=== PATIENT | male | born 1970 | race Caucasian/White ===

== ENCOUNTER 2019-10-15 03:34 | Emergency (ER) | payer OTHER ==
[2019-10-15 03:39] VITALS: BMI 24.3
[2019-10-15] MEDS ORDERED: SODIUM CHLORIDE 2,177 ML IV ONE (03:56)
--- NOTE | 2019-10-15 03:56 | PDOC ---
History of Present Illness - General Chief Complaint: SIRS, Suspected/Possible Stated Complaint: FEVER AND COLD SYMPTOMS History Source: Patient Exam Limitations: No Limitations - History of Present Illness Initial Comments: 10/15/19 07:49 49 yo M with no pmhx hx presents with 1 day of cough, fever, shortness of breath, and body aches. 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 He denies recent sick contacts and is currently still working at his branch. He took tylenol earlier today without relief of fever and aches. The patient denies the following: recent travels, chest pain, nausea, vomiting, headache, lightheadedness, dizziness, visual disturbance, abdominal pain, dysuria, hematuria, diarrhea, and leg pain/swelling. Allergies: NKDA Past History - Past Medical History Allergies/Adverse Reactions: Allergies Allergy/AdvReac Type Severity Reaction Status Date / Time No Known Allergies Allergy Verified 10/15/19 03:37 - Psycho Social/Smoking Cessation Hx Smoking History: Unknown if ever smoked Have you smoked in the past 12 months: No Information on smoking cessation initiated: No Hx Alcohol Use: No Drug/Substance Use Hx: No Review of Systems - Review of Systems Able to Perform ROS?: Yes Is the patient limited Bangladeshi proficient: No Constitutional: Yes: Chills, Fever, Weakness. No: Diaphoresis HEENTM: No: Eye Pain, Ear Pain, Nose Pain, Throat Pain, Mouth Pain Respiratory: Yes: Cough, Shortness of Breath. No: Hemoptysis Cardiac (ROS): No: Chest Pain, Irregular Heart Rate, Lightheadedness, Chest Tightness ABD/GI: Yes: Poor Fluid Intake. No: Constipated, Diarrhea, Nausea, Rectal Bleeding, Vomiting, Tarry Stools : No: Burning, Dysuria, Hematuria Musculoskeletal: Yes: Muscle Pain. No: Back Pain, Joint Pain, Neck Pain Integumentary: No: Rash Neurological: No: Headache Psychiatric: No: Change in Appetite Endocrine: No: Unexplained Weight Loss Hematologic/Lymphatic: No: Anemia *Physical Exam - Vital Signs Last Vital Signs Temp Pulse Resp BP Pulse Ox 101.0 F H 92 H 22 H 172/96 H 96 10/15/19 03:37 10/15/19 03:37 10/15/19 03:37 10/15/19 03:37 10/15/19 03:37 - Physical Exam General Appearance: Yes: Nourished, Appropriately Dressed. No: Apparent Distress, Intoxicated HEENT: positive: EOMI, CRISTINA, Normal Voice, Symmetrical, Pharynx Normal, Hearing Grossly Normal. negative: Pale Conjunctivae, Scleral Icterus (L), Muffled/Hoarse voice, Pharyngeal Erythema, Tonsillar Exudate, Tonsillar Er ythema, Nasal Congestion, Rhinorrhea, Sinus Tenderness, Excessive drooling Neck: positive: Trachea midline, Supple. negative: Tender, Lymphadenopathy (R), Lymphadenopathy (L), Tender lateral, Tender midline Respiratory/Chest: positive: Lungs Clear, Normal Breath Sounds. negative: Chest Tender, Respiratory Distress, Accessory Muscle Use Cardiovascular: positive: Regular Rhythm, Regular Rate, S1, S2. negative: Systolic Murmur Gastrointestinal/Abdominal: positive: Normal Bowel Sounds, Flat, Soft. negative: Tender Lymphatic: negative: Adenopathy Musculoskeletal: positive: Normal Inspection. negative: CVA Tenderness Extremity: positive: Normal Capillary Refill, Normal Inspection, Normal Range of Motion. negative: Tender Integumentary: positive: Normal Color, Dry, Warm, Other (hot to the touch) Neurologic: positive: Fully Oriented, Alert, Normal Mood/Affect ED Treatment Course - LABORATORY CBC & Chemistry Diagram: 10/15/19 04:15 10/15/19 03:57 Medical Decision Making - Medical Decision Making 49 yo M with no pmhx hx presents with 1 day of cough, fever, shortness of breath, and body aches. Per the patient, he works as a banking assistant at a local branch. Initial vitals: Initial Vital Signs Temp Pulse Resp BP Pulse Ox 101.0 F H 92 H 22 H 172/96 H 96 10/15/19 03:37 10/15/19 03:37 10/15/19 03:37 10/15/19 03:37 10/15/19 03:37 Work up: patient presents with URI like symptoms consistent with COVID. Patient to be swabbed for COVID. Will acquire labs and cultures Will provide fluids and tylenol Laboratory Tests 10/15/19 10/15/19 10/15/19 03:57 04:15 04:15 WBC 6.4 RBC 4.50 Hgb 13.0 Hct 38.9 MCV 86.4 MCH 28.8 MCHC 33.3 RDW 13.0 Plt Count 177 MPV 9.5 Absolute Neuts (auto) 4.8 Neutrophils % 76.0 Lymphocytes % 12.2 Monocytes % 9.9 Eosinophils % 1.6 Basophils % 0.3 Nucleated RBC % 0 PT with INR 12.60 INR 1.07 PTT (Actin FS) 30.0 Sodium 138 Potassium 3.6 Chloride 103 Carbon Dioxide 25 Anion Gap 10 BUN 8.0 Creatinine 1.1 Est GFR (CKD-EPI)AfAm 91.52 Est GFR (CKD-EPI)NonAf 78.96 Random Glucose 94 Lactic Acid Calcium 8.8 Total Bilirubin 0.3 AST 14 L ALT 15 Alkaline Phosphatase 57 Troponin I < 0.02 Total Protein 7.9 Albumin 4.0 Influenza A (Rapid) Influenza B (Rapid) RSV Rapid 10/15/19 10/15/19 10/15/19 04:15 05:30 05:30 WBC RBC Hgb Hct MCV MCH MCHC RDW Plt Count MPV Absolute Neuts (auto) Neutrophils % Lymphocytes % Monocytes % Eosinophils % Basophils % Nucleated RBC % PT with INR INR PTT (Actin FS) Sodium Potassium Chloride Carbon Dioxide Anion Gap BUN Creatinine Est GFR (CKD-EPI)AfAm Est GFR (CKD-EPI)NonAf Random Glucose Lactic Acid 2.0 Calcium Total Bilirubin AST ALT Alkaline Phosphatase Troponin I Total Protein Albumin Influenza A (Rapid) Negative Influenza B (Rapid) Negative RSV Rapid Negative labs within normal limits influenza and rsv negative; pending covid patient was re-assessed. symptomatically improved after tylenol and fluids. the patient was noted to have a recurrence of fever and given tylenol prior to discharge covid quarantine discharge instructions given to the patient. CXR was within normal limits. EKG: NSR without ST elevations or depressions. ventricular rate is 94 bpm, MN is 146 ms, QRS is 84 ms. Discharge - Discharge Information Problems reviewed: Yes Clinical Impression/Diagnosis: Viral syndrome, Coronavirus infection - Follow up/Referral Referrals: Dora Elias MD [Primary Care Provider] - - Patient Discharge Instructions Patient Printed Discharge Instructions: [facility]-Coronavirus Instructions Additional Instructions: You were seen in the emergency department for your symptoms including fevers, cough, and shortness of breath. Your labs are within normal limits and your xray looks within normal limits. Please follow up with your primary medical doctor 2 weeks after discharge. You must be placed quarantine. Please reference the coronavirus discharge instructions. Please return to the emergency department if you develop worsening symptoms or new concerns. You will be called when your results are in which takes up to 1 week. - Post Discharge Activity
[2019-10-15] MEDS ORDERED: ACETAMINOPHEN 1000 MG/100 ML VIAL (NON FORMULARY) IVPB ONE (03:57)
[2019-10-15] MEDS ORDERED: ACETAMINOPHEN INJECTION 100 ML IVPB ONE (04:03)
[2019-10-15] MEDS ORDERED: ONDANSETRON 4 MG/2 ML VIAL ONE ×2 (04:08→04:09)
[2019-10-15] MEDS ORDERED: ONDANSETRON 4 MG/2 ML VIAL IVPUSH ONE (04:18)
[2019-10-15 04:54] LABS: BASO % 0.3 % (0-2.0); EOS % 1.6 % (0-4.5); HEMATOCRIT 38.9 % (35.4-49); LYMPH % 12.2 % (8-40); MCH 28.8 pg (25.7-33.7); MCHC 33.3 g/dl (32.0-35.9); MEAN CELL VOLUME 86.4 fl (80-96); MEAN PLT VOLUME 9.5 fl (7.5-11.1); MONO % 9.9 % (3.8-10.2); PLATELET COUNT 177 K/MM3 (134-434); WHITE BLOOD COUNT 6.4 K/mm3 (4.0-10.0)
[2019-10-15 05:03] LABS: INR 1.07 (0.83-1.09); PROTHROMBIN TIME (PATIENT) 12.6 SEC (9.7-13.0)
--- NOTE | 2019-10-15 05:17 | PDOC ---
Attending Attestation - Resident Resident Name: Chad Mallory - ED Attending Attestation I have performed the following: I have examined & evaluated the patient, The case was reviewed & discussed with the resident, I agree w/resident's findings & plan, Exceptions are as noted - HPI HPI: 10/15/19 05:12 49yoM no PMHx prsents w/ fevers, headache, sore throat, cough, difficulty breathing, diarrhea x today. 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 no other family members sick taking tylenol at home withotu relief. - Physicial Exam PE: 10/15/19 05:13 NAD, no resp distress mmm tachy, no m/r/g ctabl, no crackles, no w/r/r soft ntnd A&O x 3 neuro nonfocal. - Medical Decision Making 10/15/19 05:14 49yoM w/ likely actue COVID-19, no e/o significant respiratory compomise at time of presentation. - cxr - sxs control - QUarantine. Discharge - Discharge Information Problems reviewed: Yes Clinical Impression/Diagnosis: Viral syndrome - Follow up/Referral Referrals: Dora Elias MD [Primary Care Provider] - - Patient Discharge Instructions - Post Discharge Activity
[2019-10-15 05:22] LABS: ALK PHOS 57 U/L (45-117); ANION GAP 10 MMOL/L (8-16); BILIRUBIN,TOTAL 0.3 mg/dL (0.2-1); CALCIUM 8.8 mg/dL (8.5-10.1); CHLORIDE 103 mmol/L (98-107); CO2 25 mmol/L (21-32); CREATININE 1.1 mg/dL (0.55-1.3); GLUCOSE,RANDOM 94 mg/dL (74-106); POTASSIUM 3.6 mmol/L (3.5-5.1); SGOT/AST 14 U/L (15-37); SGPT/ALT 15 U/L (13-61); SODIUM 138 mmol/L (136-145); TOT PROT 7.9 g/dl (6.4-8.2)
[2019-10-15 05:39] VITALS: PULSE 98
[2019-10-15] MEDS ORDERED: ACETAMINOPHEN 500 MG TABLET (FP) PO ONE (08:00)
[2019-10-15 08:55] VITALS: BP 112/78; TEMP 100.6
--- NOTE | 2019-10-16 09:36 | EKG ---
Test Reason : Blood Pressure : / mmHG Vent. Rate : 094 BPM Atrial Rate : 094 BPM P-R Int : 146 ms QRS Dur : 084 ms QT Int : 356 ms P-R-T Axes : 021 007 028 degrees QTc Int : 445 ms NORMAL SINUS RHYTHM NONSPECIFIC T WAVE ABNORMALITY ABNORMAL ECG NO PREVIOUS ECGS AVAILABLE Confirmed by Andrew Salas ([id number]) on 10/16/2019 9:35:27 AM Referred By: Confirmed By:Andrew Salas
== END 2019-10-15 08:15 | disposition home or self-care (01) ==
LOC: JER 03:34
PROC: 3E033NZ Introduction of Analgesics, Hypnotics, Sedatives into Peripheral Vein, Percutaneous Approach (ICD-10-PCS; principal; 2019-10-15)
PROC: 3E033GC Introduction of Other Therapeutic Substance into Peripheral Vein, Percutaneous Approach (ICD-10-PCS; 2019-10-15)
DX: J06.9 Acute upper respiratory infection, unspecified (principal); B97.89 Other viral agents as the cause of diseases classified elsewhere; Z20.828 Contact with and (suspected) exposure to other viral communicable diseases
CPT/HCPCS: 36415; 71045-TC-FY; 80053; 83605; 84484; 85025; 85610; 85730; 87040; 87798; 87804; 87807; 93005; 93010; 99285-25; J0131; J7030; U0002